=== PATIENT | female | born 1970 | race Caucasian/White ===

== ENCOUNTER → 2021-03-22 | Outpatient (CLI) | payer BC, OTHER | LOC: KOH-I 10:21 | DX: R10.84 Generalized abdominal pain (principal); F32.A Depression, unspecified; I10 Essential (primary) hypertension; E78.00 Pure hypercholesterolemia, unspecified; E11.9 Type 2 diabetes mellitus without complications; K76.0 Fatty (change of) liver, not elsewhere classified | CPT/HCPCS: 76705 ==

== ENCOUNTER → 2021-08-25 | Outpatient (CLI) | payer BC | LOC: KOH-I 13:20 | DX: M25.532 Pain in left wrist (principal) | CPT/HCPCS: 73221 ==